=== PATIENT | female | born 1980 | race Caucasian/White ===

== ENCOUNTER → 2019-04-26 10:02 | Outpatient (CLI) | payer OTHER, SELFPAY ==
--- NOTE | 2019-04-26 10:04 | MM_ITS ---
PROCEDURE: MM DIG SCREENING MAMM BI W/CAD CLINICAL INDICATION: Routine Screening Mammogram There is no personal or family history of breast cancer COMPARISON: None, this is baseline screening exam TECHNIQUE: Standard CC and MLO images were obtained. R2 CAD reviewed. FINDINGS: Prominent heterogenic fibroglandular densities are seen in the central portions of both breasts. There are 2 mole markers left breast. There is an asymmetric nodular density mid right breast at the 9 o'clock 10 o'clock position. This probably is is a small cyst but since this is a baseline study recommend the patient return for spot compression views and ultrasound may be necessary as well. There are no suspicious microcalcifications. IMPRESSION: Prominent somewhat heterogenic breast density with asymmetric density right breast BI-RAD Category: 0 Need Additional Imaging Evaluation FOLLOW-UP: IMM Immediate Follow-up Recommended (A letter has been sent to the patient regarding results of the study.) Dictated by: Dr. Georges Kim MD 04/30/2019 15:[address] Georges Kim MD in [place] 04/30/2019 15:39
== END ==
PROVIDERS: PCP Family Medicine; Visit Provider Nurse Practitioner Obstetrics & Gynecology
DX: Z12.31 Encounter for screening mammogram for malignant neoplasm of breast (principal)
CPT/HCPCS: 77067

== ENCOUNTER → 2019-06-07 13:53 | Outpatient (CLI) | payer BC, SELFPAY ==
--- NOTE | 2019-06-07 14:06 | US_ITS ---
PROCEDURE: MM DIG MAMM DX UNILAT RT with 3D tomography CLINICAL INDICATION: DX Mammorgram- Abnormal Mammogram COMPARISON: MM DIG SCREENING MAMM BI W/CAD from 04/26/2019 US BREAST RT COMPLETE from 06/07/2019 TECHNIQUE: Standard CC and MLO images were obtained. 3D tomosynthesis right breast. Right breast ultrasound the FINDINGS: There is average fibroglandular tissue. Previously noted nodular opacity in the upper outer aspect of the right breast is no longer apparent and may have been due to a cyst which has since resolved. Tomographic images show no suspicious abnormality. Right breast ultrasound: No discrete lesions are evident. There is a questionable area of decreased echogenicity at the 10 o'clock region at approximately 6 mm. This however is at best questionable with no mammographic correlate and may only be due to fibroglandular tissue. Three month sonographic follow-up suggested. IMPRESSION: BI-RAD Category: 3 Probably Benign Finding Short Term Follow-up FOLLOW-UP: 3M 3 Month Follow-up (A letter has been sent to the patient regarding results of the study.) Dictated by: Shola Hunter MD 06/10/2019 17:35 Electronically signed by Shola Hunter MD in [place] 06/10/2019 17:35
== END ==
PROVIDERS: PCP Family Medicine; Visit Provider Nurse Practitioner Obstetrics & Gynecology
DX: R92.8 Other abnormal and inconclusive findings on diagnostic imaging of breast (principal)
CPT/HCPCS: 76641; 77061; 77065; G0279

== ENCOUNTER → 2019-10-01 15:34 | Outpatient (CLI) | payer BC, SELFPAY ==
--- NOTE | 2019-10-01 15:35 | US_ITS ---
PROCEDURE: US BREAST RT COMPLETE CLINICAL INDICATION: pt. needs f/u Rt. breast u/s in 3 months. Follow-up abnormal breast ultrasound COMPARISON: US BREAST RT COMPLETE from 06/07/2019 FINDINGS: There is an ill-defined hypoechoic area at 10 o'clock near the nipple with some questionable posterior acoustical shadowing. This has a similar appearance compared to the previous exam. This measures approximately 8 mm and does not appear significantly changed and is wider than it is tall. Different imaging plane does not show persistent shadowing. This may only be due to an area fibrous tissue. Recommend continued follow-up IMPRESSION: Probably benign findings. Recommend six-month sonographic follow-up Dictated by: Shola Hunter MD 10/02/2019 18:21 Electronically signed by Shola Hunter MD in [place] 10/02/2019 18:21
== END ==
PROVIDERS: PCP Family Medicine; Visit Provider Nurse Practitioner Obstetrics & Gynecology
DX: R92.8 Other abnormal and inconclusive findings on diagnostic imaging of breast (principal)
CPT/HCPCS: 76641

== ENCOUNTER → 2020-04-13 15:00 | Outpatient (CLI) | payer BC, SELFPAY ==
--- NOTE | 2020-04-13 15:02 | US_ITS ---
PROCEDURE: US BREAST RT COMPLETE CLINICAL INDICATION: 6 MONTH FOLLOW UP COMPARISON: US US BREAST RT COMPLETE from 10/01/2019 FINDINGS: There is a persistent area of decreased echogenicity with posterior acoustical shadowing in the 10 o'clock region of the right breast. This is not significantly changed however, due to the persistence, would suggest at least fine needle aspiration. No other significant anomalies are evident. IMPRESSION: Persistent area of shadowing in the 10 o'clock region of the right breast. Recommend fine needle aspiration. BI-RADS category 4 suspicious. Recommend biopsy. Dictated by: Shola Hunter MD 04/24/2020 18:17 Shola Hunter MD in [place] 04/24/2020 18:17
== END ==
PROVIDERS: PCP Family Medicine; Visit Provider Nurse Practitioner Obstetrics & Gynecology
DX: R92.8 Other abnormal and inconclusive findings on diagnostic imaging of breast (principal)
CPT/HCPCS: 76641

== ENCOUNTER → 2020-05-28 13:18 | Outpatient (CLI) | payer BC, SELFPAY | PROVIDERS: PCP Family Medicine; Visit Provider Nurse Practitioner Obstetrics & Gynecology | DX: R92.8 Other abnormal and inconclusive findings on diagnostic imaging of breast (principal) | CPT/HCPCS: 19083 ==

== ENCOUNTER → 2020-06-17 12:53 | Outpatient (CLI) | payer BC, SELFPAY ==
--- NOTE | 2020-06-17 12:54 | MM_ITS ---
PROCEDURE: MM DIG SCREENING MAMM BI W/CAD Digital Breast Tomosynthesis Included CLINICAL INDICATION: Screening There is no personal or family history of breast cancer. COMPARISON: MG MM DIG SCREENING MAMM BI W/CAD from 04/26/2019 MG MM DIG MAMM DX UNILAT RT CAD from 06/07/2019 TECHNIQUE: Standard MLO and CC views were obtained along with tomosynthesis images FINDINGS: Moderate scattered fibroglandular densities are seen in both breasts. The findings are bilateral and symmetrical. There are 2 mole markers left breast. There is no suspicious lesion in either breast and no suspicious microcalcifications. There are fatty replaced nodes in both axilla. IMPRESSION: Moderate breast density with no suspicious lesions seen BI-RAD Category: 2 Benign Finding(s) FOLLOW-UP: 1YR 1 Year Follow-up (A letter has been sent to the patient regarding results of the study.) Dictated by: Dr. Georges Kim MD 06/18/2020 15:08 Dr. Georges Kim MD in [place] 06/18/2020 15:08
== END ==
PROVIDERS: PCP Family Medicine; Visit Provider Surgery
DX: Z12.31 Encounter for screening mammogram for malignant neoplasm of breast (principal); N63.10 Unspecified lump in the right breast, unspecified quadrant
CPT/HCPCS: 77063; 77067

== ENCOUNTER → 2020-07-08 15:22 | Outpatient (CLI) | payer BC, SELFPAY ==
[2020-07-08 16:07] LABS: Basophils # 0.1 K/mm3 (0-0.2); Basophils % 0.7 % (0.1-2.0); Eosinophils # 0.1 K/mm3 (0.0-0.4); Eosinophils % 1.4 % (0.1-12.0); Hematocrit 38.5 % (37.0-47.0); Hemoglobin 12.3 g/dL (12.2-16.2); Lymphocytes # 2.6 K/mm3 (0.7-4.5); Lymphocytes % 33.2 % (10-50); Mean Corpuscular Hemoglobin 28.6 pg (27.0-31.2); Mean Corpuscular Volume 89.4 fl (81-99); Mean Platelet Volume 8.7 fl (7.4-10.4); Monocytes # 0.3 K/mm3 (0.1-1.0); Monocytes % 3.9 % (1.7-9.3); Neutrophils # 4.8 K/mm3 (1.8-7.8); Neutrophils % 60.8 % (37.0-80.0); Platelet Count 311 K/mm3 (142-424); Red Cell Distribution Width 13.2 % (11.5-17.5); White Blood Count 7.9 K/mm3 (4.8-10.8)
[2020-07-08 17:07] LABS: Anion Gap 13.4 mEq/L (5-15); Blood Urea Nitrogen 12 mg/dl (7-17); Calcium 9.4 mg/dl (8.4-10.2); Carbon Dioxide 24 mmol/L (22.0-30.0); Chloride 106 mmol/L (98-107); Estimated Glomerular Filt Rate 92 ml/min (>60); GFR (African American) 112 ML/MIN (>60); Glucose 98 mg/dl (74-100); Potassium 4.4 mmoL/L (3.5-5.1); Sodium 139 mmol/L (136-145)
[2020-07-08 18:08] LABS: Coronavirus 19 IgG Antibody Positive (Negative); Coronavirus 19 IgM Antibody Negative (Negative)
== END ==
PROVIDERS: Visit Provider Surgery
DX: Z01.818 Encounter for other preprocedural examination (principal); Z20.822 Contact with and (suspected) exposure to COVID-19; Z86.16 Personal history of COVID-19; N63.10 Unspecified lump in the right breast, unspecified quadrant
CPT/HCPCS: 36415; 80048; 85025; 86328

== ENCOUNTER 2020-07-10 08:09 | Day surgery (SDC) | payer BC, SELFPAY ==
[2020-07-10] VITALS (15 sets, daily range): BP systolic 104–123; BP diastolic 62–76; PULSE 62–82; RESP 14–18; TEMP 36.2–43; O2SAT 93–98
--- NOTE | 2020-07-10 | MM_ITS ---
PROCEDURE: US BREAST NEEDLE LOC RT CLINICAL INDICATION: Breast mass Abnormal ultrasound-guided biopsy., atypical COMPARISON: US US BIOPSY BREAST RT from 05/28/2020 MG MM SURGICAL SPECIMEN RT from 07/10/2020 US US BREAST RT LIMITED from 07/10/2020 MG MM DIG MAMM DX UNILAT RT CAD from 07/10/2020 FINDINGS: Following obtaining informed consent and time-out procedure under aseptic conditions and local anesthesia with 1 percent buffered lidocaine into the nodule of interest within the right breast at the 10 o'clock region. The hookwire was then employed with post placement images showing good hookwire placement. The patient tolerated the procedure well without evidence of immediate complication. Right mammogram was obtained following hookwire placement showed the hookwire in the upper outer aspect of the right breast. Surgical specimen was obtained radiographically and by ultrasound. It is difficult to definitely identify the lesion however the hookwire is in place. Consider six-month mammographic and sonographic follow-up. IMPRESSION: Uneventful ultrasound-guided needle localization of the right breast as described above. Six six-month follow-up suggested per routine protocol. Dictated by: Shola Hunter MD 07/21/2020 09:29 Shola Hunter MD in [place] 07/21/2020 09:29
[2020-07-10 06:47] LABS: HCG Qualitative, Serum Negative (Negative)
--- NOTE | 2020-07-10 10:18 | HMH.ANESCL ---
[facility] Anesthesia Checklist - Patient Identification Patient Identification: Arm Band - Structural Data Admitted From: Home Planned Operative Procedure/s: Right Breast Bx with Needle localization Consent for Planned Operative Procedure(s) Verified: Yes Verified Documents: Surgical Consent, History and Physical - NPO Status Verified Time NPO: 00:00 - Additional verifications Anesthesia Reactions: No Hx Blood Transfusions: No Blood Transfusion Reaction: No - Airway Assessment C-Spine Mobility Assessed: Yes (mp2) TMJ Mobility Assessed: Yes Dentition: Good Dentition - Neurological Assessment Level of Consciousness: Awake, Alert - Anesthesia Plan Anesthesia Risk discussed: Yes Anesthesia Plan: Verified ASA Class: II Anesthesia Type: General [facility] History I have reviewed the patient's past medical history: Yes Medical History: Denies:: Cancer, Diabetes Mellitus Type 1, Diabetes Mellitus Type 2, MRSA, Seizures *Have you ever received a pneumonia vaccine?: No *Have you received a flu vaccine this season?: Yes Other Medical History: Denies: Blood Transfusion Reaction Anesthesia experience/problems:: nac Laterality Cases: Right: Breast Biopsy Other Surgeries: Yes: , Other Amputation: No Fractures: No - *Social History Last grade of school completed: Advanced degree Smoking Status: Never smoker Alcohol Intake: never Substance Use Type: denies use *Occupational Status:: employed *Travel in the last 8 weeks: None Family Hx:: Tuberculosis, Cancer
--- NOTE | 2020-07-10 10:42 | SUR.OPER ---
1026-specimen excised taken to radiology at this time for mammography and ultrasound 1042-Dr. Hunter notified Dr. Pat at this time that specimen excised was okay and no need for further specimen to be excised
--- NOTE | 2020-07-10 11:02 | P.OP_ITS ---
Date of procedure: 07/10/20 Pre-op Diagnosis:: Right breast mass (atypia noted on biopsy) Post-op Diagnosis:: Same Procedure performed:: Needle-localized excisional biopsy of right breast mass Surgeon:: Dariusz Pat MD FLYER BUILDER:: Damir Leblanc Anesthesia: LMA Estimated blood loss (mL): 25 Operative findings:: Specimen marked with dyed suture for deep and superficial margin (short superficial/long deep). Specimen marked with nondyed suture for superior and lateral margins (short superior/long lateral). Radiographic confirmation of excision Operative note:: After informed consent was obtained the patient was taken to the radiology suite where a localization needle was placed. Please see separate report for detail. She was then transferred to the operating room and placed in a supine position. General anesthesia with laryngeal mask airway was achieved. Her right breast was prepped and draped in a sterile fashion. After infiltration local anesthetic a curvilinear incision at the needle exit site was made with scalpel. A combination of scalpel and electrocautery was then utilized to transect through the deeper subcutaneous tissue. Electrocautery and curved Chan scissors were then utilized to transect the breast tissue around the localization needle. The entire needle with surrounding tissue was excised and passed off for pathologic evaluation after being marked for orientation. Electrocautery was utilized to achieve hemostasis throughout the entire wound. A small area of along the medial aspect of the wound of continued ooze was then controlled with interrupted Vicryl suture in a [id number] fashion. Metallic clips were placed along the wound base and margin. The deep subcutaneous tissue was reapproximated with interrupted Vicryl and skin was then closed with 4-0 Monocryl in a running subcuticular fashion. Steri-Strips were applied and the patient was transferred to recovery in stable condition after removal of her laryngeal mask airway. Condition: stable Disposition: PACU Specimens:: Needle localized excisional biopsy of right breast mass Complications:: No immediate
--- NOTE | 2020-07-10 11:13 | P.PN_ITS ---
[facility] Anesthesia Record Part I Intake, IV Amount: 1,000 Estimated blood loss (mL): 10 Urine output (mL): 0 Blood Pressure: 119/70 SaO2: 93 Pulse Rate: 76 Respiratory Rate: 16 Temperature: 97.8 F Patient is:: Drowsy, Stable Stable to PACU at:: 11:10
--- NOTE | 2020-07-10 13:16 | P.PN_ITS ---
[facility] Anesthesia Record Part II Discharge Time: 11:59 Destination: Surgical Day Care (OP Surgery) PACU nurse assessment reviewed?: Yes Patient Condition:: Good Anesthesia Complications:: None Swallowing reflex intact?: Yes Cyanosis?: No Blood Pressure: 104/65 Pulse Rate: 67 Temperature: 97.2 F Mental Status: Alert & Oriented Pain level:: 3 Nausea and/or vomitting:: None Intake, IV Amount: 0
--- NOTE | 2020-07-10 13:19 | PC.NURSE ---
PT BEGAN TO FEEL NAUSEATED WHEN STARTED TO GET DRESSED BUT FEELING PASSED AND WAS READY TO DISCHARGED VIA W/C. STABLE.
== END 2020-07-10 13:20 | disposition home health service (06) ==
LOC: OR 08:11
PROVIDERS: PCP Family Medicine; Visit Provider Surgery
PROC: (CPT 19125; principal; 2020-07-10 09:30)
DX: D24.1 Benign neoplasm of right breast (principal); Z82.5 Family history of asthma and other chronic lower respiratory diseases; Z80.9 Family history of malignant neoplasm, unspecified
CPT/HCPCS: 19125; 19285; 76098; 76642; 77061; 77065; 84703; 96374; G0279; J2405

== ENCOUNTER → 2021-01-14 13:13 | Outpatient (CLI) | payer BC, SELFPAY ==
--- NOTE | 2021-01-14 13:14 | MM_ITS ---
PROCEDURE: MM DIG MAMM DX UNILAT RT CAD Digital Breast Tomosynthesis Included Right breast ultrasound complete with axilla CLINICAL INDICATION: lump COMPARISON: MG MM DIG MAMM DX UNILAT RT CAD from 06/07/2019 MG MM DIG SCREENING MAMM BI W/CAD from 06/17/2020 MG MM SURGICAL SPECIMEN RT from 07/10/2020 MG MM DIG MAMM DX UNILAT RT CAD from 07/10/2020 US US BREAST NEEDLE LOC RT from 07/10/2020 US US BREAST RT LIMITED from 07/10/2020 US US BREAST RT COMPLETE from 01/14/2021 TECHNIQUE: Standard images obtained along with tomosynthesis and spot compression views and right breast ultrasound. FINDINGS: The breasts are heterogeneously dense which may obscure small masses.. Surgical clips are present in the upper outer aspect of the right breast. There is an oval lucent area at this region measuring 2.3 x 1.3 cm. No malignant appearing mass or malignant-appearing microcalcification is evident. Right breast ultrasound: Postsurgical changes are present at the 10 o'clock region with a 2 cm area mixed echogenicity corresponding to the lucent area noted on the mammogram. No suspicious abnormalities are apparent. IMPRESSION: Postsurgical changes. No evidence of malignancy. BI-RAD Category: 2 Benign Finding FOLLOW-UP: 6M 6 Month Follow-up Suggest resume screening mammogram June 2021 (A letter has been sent to the patient regarding results of the study.) Dictated by: Shola Hunter MD 01/27/2021 08:31 Shola Hunter MD in [place] 01/27/2021 08:32
== END ==
PROVIDERS: PCP Family Medicine; Visit Provider Surgery
DX: N63.10 Unspecified lump in the right breast, unspecified quadrant (principal)
CPT/HCPCS: 76641; 77061; 77065; G0279

== ENCOUNTER → 2021-02-03 09:33 | Outpatient (CLI) | payer BC, SELFPAY ==
--- NOTE | 2021-02-03 09:33 | US_ITS ---
PROCEDURE: US FNA LYMPH NODE CLINICAL INDICATION: Enlarged right axillary lymph node COMPARISON: US US BREAST RT COMPLETE from 01/14/2021 TECHNIQUE: Following obtaining informed consent, using aseptic technique and local anesthesia with buffered lidocaine, fine-needle aspiration was performed of the nodule of interest using sonographic guidance. 3 passes were made into the largest node in the right axillary region with a 21 gauge needle. Specimen was given to cytology. The patient tolerated the procedure well without evidence of immediate complications and left the ultrasound suite in stable condition. FINDINGS: CYTOLOGY: Negative for malignant cells consistent with benign reactive lymphadenopathy IMPRESSION: Uneventful ultrasound-guided FNA of a right axillary lymph node showing benign findings Dictated by: Shola Hunter MD 02/10/2021 12:12 Shola Hunter MD in [place] 02/10/2021 12:12
== END ==
PROVIDERS: PCP Family Medicine; Visit Provider Surgery
DX: R59.0 Localized enlarged lymph nodes (principal)
CPT/HCPCS: 10005

== ENCOUNTER → 2021-06-21 12:52 | Outpatient (CLI) | payer BC, SELFPAY ==
--- NOTE | 2021-06-21 12:53 | MM_ITS ---
PROCEDURE INFORMATION: Exam: MG Bilateral Screening 3D Mammography Exam date and time: 06/21/2021 12:53 PM Age: 40 years old Clinical indication: Encounter for screening mammogram for malignant neoplasm of breast TECHNIQUE: Imaging protocol: Bilateral Screening tomosynthesis and 2D mammography including computer-aided detection (CAD) when performed. COMPARISON: 1. MG MM DIG MAMM DX UNILAT RT CAD 01/14/2021 1:10 PM 2. MG MM DIG MAMM DX UNILAT RT CAD 07/10/2020 9:20 AM 3. MG MM DIG SCREENING MAMM BI W/CAD 06/17/2020 1:05 PM FINDINGS: MAMMOGRAPHY: Breast composition: The breasts are heterogeneously dense, which may obscure small masses. Mass: No suspicious masses. Architectural distortion: No suspicious distortion. Relatively stable postoperative changes in the right upper outer quadrant. Skin marker overlies the biopsy scar at site of reported persistent post biopsy hematoma, per patient. Calcifications: No suspicious calcifications. Asymmetric density: None. Skin thickening: None. Axillary adenopathy: None. IMPRESSION: No mammographic evidence of malignancy. Annual screening is recommended unless otherwise clinically indicated. ASSESSMENT: BI-RADS Category 2: Benign
== END ==
PROVIDERS: PCP Family Medicine; Visit Provider Surgery
DX: Z12.31 Encounter for screening mammogram for malignant neoplasm of breast (principal)
CPT/HCPCS: 77063; 77067

== ENCOUNTER → 2021-07-14 10:06 | Outpatient (CLI) | payer BC, SELFPAY ==
--- NOTE | 2021-07-14 10:07 | US_ITS ---
FINAL REPORT CLINICAL HISTORY: palpable area right breast after patient had lumpectomy, imaging nodule FINDINGS: ULTRASOUND-GUIDED right BIOPSY TECHNIQUE: Limited images were obtained to localize region of interest. The right was prepped in a routine sterile fashion and locally anesthetized with 1% lidocaine. Small hypoechoic area was identified sonographically. Initial intent was to FNA the abnormality. Initial thought was that the abnormality may represent fluid. An 18-gauge needle was directed into the abnormality. Vigorous aspiration and multiple attempts at FNA were acquired yielding very minimal tissue. This could be due to extremely viscous fluid or solid tissue. Procedure was then converted to core biopsy. 3 separate core biopsies were performed with an 18-gauge needle. There was a small amount of solid, fragmented material. Given the sonographic appearance, lucent nature on mammography and consistency at time of aspiration and biopsy this raises a question of a small area of evolving fat necrosis. Procedure was well tolerated . CONCLUSION: 1. Technically successful ultrasound guided aspiration and core biopsy of right breast nodule as above. Authenticated by Charli Montoya MD on 07/21/2021 12:03:44 AM [facility]
== END ==
LOC: RAD 10:07
PROVIDERS: PCP Family Medicine; Visit Provider Surgery
DX: N63.11 Unspecified lump in the right breast, upper outer quadrant (principal)
CPT/HCPCS: 19083

== ENCOUNTER → 2022-06-22 10:05 | Outpatient (CLI) | payer BC, SELFPAY ==
--- NOTE | 2022-06-22 10:09 | MM_ITS ---
PROCEDURE INFORMATION: Exam: MG Bilateral Screening 3D Mammography Exam date and time: 06/22/2022 9:59 AM Age: 41 years old Clinical indication: Screening examination . Benign right breast excision TECHNIQUE: Imaging protocol: Bilateral Screening tomosynthesis and 2D mammography including computer-aided detection (CAD) when performed. COMPARISON: 1. MG MM DIG SCREENING MAMM BI W/CAD 06/21/2021 12:56 PM 2. MG MM DIG MAMM DX UNILAT RT CAD 01/14/2021 1:10 PM FINDINGS: MAMMOGRAPHY: Breast composition: There are scattered areas of fibroglandular density. Mass: None. Architectural distortion: Stable post operative architectural distortion in the right upper outer quadrant Calcifications: No suspicious calcifications. Asymmetric density: None. Skin thickening: None. Axillary adenopathy: None. IMPRESSION: No mammographic evidence of malignancy. Annual screening is recommended unless otherwise clinically indicated. ASSESSMENT: BI-RADS Category 2: Benign
== END ==
PROVIDERS: PCP Family Medicine; Visit Provider Family Medicine
DX: Z12.31 Encounter for screening mammogram for malignant neoplasm of breast (principal)
CPT/HCPCS: 77063; 77067

== ENCOUNTER 2023-06-23 14:54 | Outpatient (CLI) | payer BC, SELFPAY ==
--- NOTE | 2023-06-23 14:59 | MM_ITS ---
PROCEDURE INFORMATION: Exam: MG Bilateral Screening 3D Mammography Exam date and time: 06/23/2023 2:51 PM Age: 42 years old Clinical indication: Screening examination. History of benign right breast excision TECHNIQUE: Imaging protocol: Bilateral Screening tomosynthesis and 2D mammography including computer-aided detection (CAD) when performed. COMPARISON: 1. MG MM DIG SCREENING MAMM BI W/CAD 06/22/2022 9:59 AM 2. MG MM DIG SCREENING MAMM BI W/CAD 06/21/2021 12:56 PM FINDINGS: MAMMOGRAPHY: Breast composition: There are scattered areas of fibroglandular density. Mass: None. Architectural distortion: Stable post operative architectural distortion in the right upper outer quadrant due to prior excision Calcifications: No suspicious calcifications. Asymmetric density: None. Skin thickening: None. Axillary adenopathy: None. IMPRESSION: No mammographic evidence of malignancy. Annual screening is recommended unless otherwise clinically indicated. ASSESSMENT: BI-RADS Category 2: Benign
== END 2023-06-23 23:59 ==
LOC: RAD 14:55
PROVIDERS: PCP Family Medicine; Visit Provider Family Medicine
DX: Z12.31 Encounter for screening mammogram for malignant neoplasm of breast (principal)
CPT/HCPCS: 77063; 77067

== ENCOUNTER 2024-09-23 14:08 | Outpatient (CLI) | payer BC, SELFPAY ==
--- NOTE | 2024-09-23 14:00 | MM_ITS ---
PROCEDURE INFORMATION: Exam: MG Bilateral Screening 3D Mammography Exam date and time: 09/23/2024 2:16 PM Age: 44 years old Clinical indication: Screening examination TECHNIQUE: Imaging protocol: Bilateral Screening tomosynthesis and 2D mammography including computer-aided detection (CAD) when performed. COMPARISON: 1. MG MM DIG SCREENING MAMM BI W/CAD 06/23/2023 2:51 PM 2. MG MM DIG SCREENING MAMM BI W/CAD 06/22/2022 9:59 AM FINDINGS: MAMMOGRAPHY: Breast composition: The breasts are heterogeneously dense, which may obscure small masses. Mass: None. Architectural distortion: No new or suspicious distortion Calcifications: No suspicious calcifications. Asymmetric density: None. Skin thickening: None. Axillary adenopathy: None. IMPRESSION: No mammographic evidence of malignancy. Annual screening is recommended unless otherwise clinically indicated. ASSESSMENT: BI-RADS Category 1: Negative.
--- OUTSIDE RECORDS SUMMARY | 2024-09-23 14:09 | XMS_ITS | Data Portability ---
Author Organization [facility] ASTRID Courntey NAVARRE CLOSED Address [address] [address] [place] [address] Assessment No assessment recorded. Plan of Treatment Reminders Order Date Submit Date Provider Last Modified By Organization Details Last Modified Time Details Appointments DERMATOLO GY VISIT 2024 03:45P M PRAVIN MACKENZIE FABRICATION SUPERVISOR Not available Not available Not available Lab surgical pathology study 2023 024 [facility], [address] [place] [address], [phone], 09/15/2023 10:46:38 surgical pathology study 2018 019 [facility], [address] [place] [address], [phone], 06/28/2018 12:07:48 Referral None recorded. Procedures None recorded. Surgeries None recorded. Imaging None recorded. Medication Orders None recorded. Patient TargetsNo targets recorded. Patient Instructions Encounter Date Encounter Id Patient Instructions Last Modified By Organization Details Last Modified Time 06/26/2018 [id number] learning about basal cell skin cancer [email or web address] Not available 06/28/2018 16:39:45 seborrheic keratosis: care instructions [email or web address] Not available 06/28/2018 16:39:45 actinic keratosis: care instructions [email or web address] Not available 06/28/2018 16:39:45 Reason for Referral None Reported. Results Created Date Observation Date Name Description Value Unit Range Abnormal Flag Note LastModifiedBy Organization Detail LastModifiedTime 06/26/19 19 06/26/2018 surgi karthikeyan patho logy study surgical pathology procedure SEE BELOW Depar tment of Patho logy Surgi karthikeyan Patho logy Repor t NAME: ROHAN LEON SE [facility] PATH. :[id number] Copy to: Diagn osis: Left upper anter ior arm: Basal cell carci noma, nodul ar type. SOURC E OF SPECI MEN: SKIN BIOPS Y, LEFT UPPER ANTER IOR ARM CLINI KARTHIKEYAN INFOR MATIO N: D48.5 R/O - BCC Gross Descr iptio n: Recei brandy in forma gisele label ed with the patie nt's name and desig nated as left upper anter ior arm is a shave biops y of skin (0.5 x 0.4 x 0.1 cm). The epide rmal surfa ce is massey-w leanne and monserrat h. The shantel n is inked blue. The speci men is entir whit submi tted in one casse tte. UTE 06/27 11:19 AM Micro scopi c Descr iptio n: Secti ons demon strat e a nodul ar patte rn of basal cell carci noma with tumor abutt ing the inked deep shantel n of the shave biops y. TOMMY RICO M.D. Olivia d Out Date: 06/28 12:06 Page 1 of 1 Not Available [facility] [address] [place] [address], [place], [address], 06/28/2018 12:07:48 09/13/19 24 09/13/2023 SURGI KARTHIKEYAN surgical SEE BELOW abnormal Depar tment of Patho logy Surgi karthikeyan Patho logy Repor t NAME: ROHAN LEON SE [facility] PATH. :[id number] Copy to: Diagn osis: Left upper later al thigh : Basal cell carci noma, super ficia l type; incom plete ly excis ed. SOURC E OF SPECI MEN: SKIN BIOPS Y, LEFT UPPER LATER AL THIGH CLINI KARTHIKEYAN INFOR MATIO N: D48.5 R/O BCC Gross Descr iptio n: Recei brandy in forma gisele label ed with the patie nt's name and desig nated left upper later al thigh is a shave biops y of skin (0.5 x 0.4 x 0.1 cm). The epide rmal surfa ce is white and rough ened. The shantel n is inked blue. The speci men is bisec sima and entir whit submi tted in one casse tte label ed A1. MT 09/13 12:19 PM Micro scopi c Descr iptio n: A micro scopi c exami natio n has been perfo rmed and the resul t(s) are as noted above . TOMMY RICO M.D. Olivia henao Out Date: 09/14 10:46 Page 1 of 1 Not Available [facility] [address] [place], [address], 09/15/2023 10:46:38 Result Notes None recorded. Procedures Surgical History Date Name Laterality Status Provider Name and Address Organization Details Recorded Time 03/20/20 24 Destruction Premalignant Lesion(s) completed PRAVIN MACKENZIE, FABRICATION SUPERVISOR [address] [place], [address], [facility] 03/20/2024 16:23:47 09/13/19 24 Destruction [place] Lesion; trunk, arm, leg completed PRAVIN MACKENZIE, FABRICATION SUPERVISOR [address] [place], [address], [facility] 09/13/2023 16:32:13 09/13/19 24 Destruction Premalignant Lesion(s) completed Kesha Sue [facility] 09/13/2023 16:13:48 06/26/19 19 Destruction MN Lesion; trunk, arm, leg completed Nehal Amaya [facility] 06/26/2018 15:39:48 06/26/19 19 Destruction Premalignant Lesion(s) completed Nehal Grahamutcher [facility] 06/26/2018 15:40:36 Imaging Results None recorded. Procedure Notes None recorded. Medical Equipment None Reported. Allergies Allergen ID Allergen Name Allergen Category Reaction Reaction Severity Criticality Documentation Date Start Date Code Code System Note Provider Name and Address Organization Details Recorded Time 511429 Product containin g penicilli n (product) medicatio n Not available Not available Not available 06/26/2018 19961 8001 SNOMED Nehal Amaya [facility] 9 15:24:55 Medications Name Sig Start Date Stop Date Status Note LastModified by Organization Details LastModified Time phentermine 06/26 completed Medication Descriptio n: phentermin e; refills:0 Not Available Not Available Not Available Vitals None Recorded Social History Question Answer Notes LastModified by Organizat ion Details LastModified Time Tobacco Smoking Status Never Smoker Nehal Amaya [facility] 06/26/2018 15:25:27 How Much Tobacco Do You Chew? None [email or web address] Information not available 06/26/2018 What Was The Date Of Your Most Recent Tobacco Screening? 06/26/2018 [email or web address] Information n ot available 07/02/2019 Sex: Unknown Functional Status None recorded. Mental Status None recorded. Family History Nothing Reported Notes:NO FAMILY HX OF MM Medical History No medical history recorded. Gynecological HistoryNo gynecological history recorded. Obstetrics History GPAL:G 0 P 0 0 0 0 Past Encounters Encounter ID Performer Location Encounter Start Date Encounter Closed Date Diagnosis/Indication Diagnosis SNOMED-CT Code Diagnosis ICD10 Code Diagnosis Note [id number] PRAVIN MACKENZIE APRN [facility] [address] [place] [address] 06/26/2018 15:11:23 06/29/2018 08:04:00 Multiple benign melanocytic nevi 398661760 D22.9 BENIGN APPEARANCE , PT REASSURED; ADVISED TO RTC WITH ANY CHANGES F/U 1 YR ANNUAL FSE OR SOONER IF ANY NEW OR CHANGING LESIONS Solar lentiginosis 13117 2006 L81.4 BENIGN APPEARANCE , PT REASSURED Hemangioma 282988587 D18 .00 BENIGN APPEARANCE , PT REASSURED History of malignant basal cell neoplasm of skin 762896812 Z85.828 NO EVIDENCE OF RECURRENCE Neoplasm o f uncertain behavior of skin 78873872 D48.5 R/O BCC LOCATION: LEFT UPPER ANTERIOR ARM SHAVE BIOPSY ED&C X3 GEL FOAM/PRESS URE BANDAGE SEE PROCEDURE NOTE CONSENT SIGNED WOUND CARE INSTRUCTIO NS PROVIDED PHOTO TAKEN FOLLOW UP PER PATH/PRN Senile hyperkeratosis 39 7653458 L82.1 BENIGN APPEARANCE , PT REASSURED Actinic keratosis 801197 007 L57.0 CRYO X1 RISKS OF CRYO SURGERY DISCUSSED; POST OP CARE INSTRUCTIO NS PROVIDED. VERBAL CONSENT TO TREAT GIVEN BY PATIENT. RECHECK IF PERSISTING AFTER TREATMENT. Basal cell carcinoma of skin 068973780 C44.91 LESION TREATED ABOVE ON ARM BIOPSY PROVEN [id number] PRAVIN MACKENZIE APRN [facility] [address] [place] [address] 09/13/2023 15:55:07 09/14/2023 08:18:33 Multiple benign melanocytic nevi 313920241 D22.9 BENIGN APPEARANCE , PT REASSURED; ADVISED TO RTC WITH ANY CHANGES F/U 1 YR ANNUAL FSE OR SOONER IF ANY NEW OR CHANGING LESIONS Solar lentiginosis 16434 2006 L81.4 BENIGN APPEARANCE ,RECOMMEND SUN PROTECTIVE CLOTHING AND EQUATE SPORT SUNSCREEN AND CERAVE AM SUNSCREEN LOTION OTC DAILY. Hemangioma 194695290 D18 .00 BENIGN APPEARANCE , PT REASSURED History of malignant basal cell neoplasm of skin 964376468 Z85.828 NO EVIDENCE OF RECURRENCE RECOMMEND 6 MONTH FSE Senile hyperkeratosis 39 3433425 L82.1 BENIGN APPEARANCE , PT REASSURED Actinic keratosis 572259 007 L57.0 CRYO X3 RISKS OF CRYO SURGERY DISCUSSED; POST OP CARE INSTRUCTIO NS PROVIDED. VERBAL CONSENT TO TREAT GIVEN BY PATIENT. RECHECK IF PERSISTING AFTER TREATMENT. Neoplasm o f uncertain behavior of skin 94986368 D48.5 R/O BCC LOCATION: L UPPER LATERAL THIGH SHAVE BIOPSY ED&C X3 GEL FOAM/PRESS URE BANDAGE SEE PROCEDURE NOTE CONSENT SIGNED WOUND CARE INSTRUCTIO NS PROVIDED PHOTO TAKEN FOLLOW UP PER PATH Basal cell carcinoma of lower extremity 726068118 C44.719 BIOPSY PROVEN LESION TREATED ABOVE [id number] EMILIA [facility]BA[facility]AL [facility] [address] [place] [address] 03/20/2024 16:07:42 03/20/2024 16:25:31 Multiple benign melanocytic nevi 330731618 D22.9 BENIGN APPEARANCE , PT REASSURED; ADVISED TO RTC WITH ANY CHANGES F/U 1 YR ANNUAL FSE OR SOONER IF ANY NEW OR CHANGING LESIONS Solar lentiginosis 87476 2006 L81.4 BENIGN APPEARANCE ,RECOMMEND SUN PROTECTIVE CLOTHING AND EQUATE SPORT SUNSCREEN AND CERAVE AM SUNSCREEN LOTION OTC DAILY. Hemangioma 935186616 D18 .00 BENIGN APPEARANCE , PT REASSURED History of malignant basal cell neoplasm of skin 043350251 Z85.828 NO EVIDENCE OF RECURRENCE RECOMMEND 6 MONTH FSE Senile hyperkeratosis 39 4723695 L82.1 BENIGN APPEARANCE , PT REASSURED Actinic keratosis 799754 007 L57.0 CRYO X2 RISKS OF CRYO SURGERY DISCUSSED; POST OP CARE INSTRUCTIO NS PROVIDED. VERBAL CONSENT TO TREAT GIVEN BY PATIENT. RECHECK IF PERSISTING AFTER TREATMENT. Health Concerns Section Related Observation LastModified by Organization Detai ls LastModified Time None Recorded Concern Status LastModified by Organization Details LastModified Time None Recorded Advance Directives Directive None Recorded Payers Insurance Date Sequence Insurance Name Policy Number Policy Branch Covered Member ID Branch Member ID Guarantor Name 09/16/2024 1 [place] [id number] 1 Ana Arias [id number] Ana Arias Notes Date Note Type Note Provider Name and Address Organization Details Recorded Time 06/26/2018 text/html NEW PT- LAST SEE N 12/2014 1) DESIRES FSE- HX OF BCC 2) PT C/O LESION ON LEFT ARM X 6 MONTHS. (-)ITCH/BLEED/PAIN . NO TX NO OTHER CONCERNS Denies any other new, changing, or bleeding lesions, or other rashes. Patient feels well today and in a good mood. No family history of melanoma. PRAVIN MACKENZIE, EMILIA [address] [place], [address], [facility] 06/28/2018 16:42:30 09/13/2023 text/html NEW PT- LAST SEE N 2018 1) DESIRES FSE- HX OF BCC 2) PT C/O LESION ON L THIGH (-)ITCH/BLEED/PAIN . NO TX Denies any other new, changing, or bleeding lesions, or other rashes. Patient feels well today and in a good mood. No family history of melanoma. PRAVIN MACKENZIE, EMILIA [address] [place], [address], [facility] 09/18/2023 10:53:59 03/20/2024 text/html ESTABLISHED PT - HX BCC 1) DESIRES FSE NO OTHER CONCERNS Denies any other new, changing, or bleeding lesions, or other rashes. Patient feels well today and in a good mood. No family history of melanoma. PRAVIN MACKENZIE, FABRICATION SUPERVISOR [address], [place], [address], [facility] 03/20/2024 16:25:07 OBGyn Episode No OBEpisode recorded.
== END 2024-09-23 23:59 | disposition home or self-care (01) ==
LOC: RAD 14:08
PROVIDERS: PCP Family Medicine; Visit Provider Obstetrics & Gynecology
DX: Z12.31 Encounter for screening mammogram for malignant neoplasm of breast (principal)
CPT/HCPCS: 77063; 77067

== ENCOUNTER 2024-11-20 09:26 | Day surgery (SDC) | payer BC, SELFPAY ==
[2024-11-19 13:01] VITALS: BMI 24.0
--- NOTE | 2024-11-20 09:02 | EXP.HP ---
History of Present Illness *Admission Date: 11/20/24 *Reason for visit:: Screening colonoscopy *History of present illness: Mrs. Arias is a 44-year-old female who is here for initial screening colonoscopy. The examination is deemed medically necessary for screening colonoscopy. The patient has been seen, interviewed and examined prior to the procedure by both myself and the anesthesia provider. [facility] Disclaimer: The information contained in this section may have been updated after the patient was seen, as this information can be updated by other users. Medical History (Updated 11/20/24 @ 11:35 by Tim Pete II, MD) Polycystic ovarian syndrome Mass of right breast on mammogram Endometriosis determined by laparoscopy delivery delivered Family History Other Alcoholism Cancer FHx: mental illness Hypertension Tuberculosis Social History Smoking Status: Never smoker alcohol intake: never substance use type: denies use current occupational status: employed Travel in the last 8 weeks?: None Have you lived/traveled outside US in past 30 days?: No Contact w/someone who lives/traveled outside US past 30 days?: No Exposure to someone with infectious disease in past 14 days?: No Do you have a fever (greater than 100.4 F or 38 C)?: No Have you tested positive for COVID-19?: No Exposed to someone with COVID-19 in past 14 days?: No Do you have a sore throat?: No Do you have a cough?: No Do you have any weakness?: No Do you have any diarrhea?: No Are you experiencing any unusual bleeding?: No Do you have any muscle aches/pain?: No Do you have any abdominal pain?: No Are you experiencing loss of taste or smell?: No Other Medical History Have you received the Flu Vaccine for this season: Yes Have you received the Pneumonia Vaccine: No Review of Systems Review of Systems Review of systems (narrative): Negative *Cardiovascular Comments: Negative *Gastrointestinal Comments: Negative *Genitourinary Comments: Negative *Musculoskeletal Comments: Negative *Neurologic Comments: Negative Meds Home Medications and Allergies Home Medications ?Medication ?Instructions ?Recorded ?Confirmed ?Type norgestimate 0.25 mg-ethinyl 1 tab .Route DAILY #28 tabs 09/10/24 11/20/24 Rx estradiol 0.035 mg tablet (Sprintec (28)) sod picosulf 10 mg-magnes 3.5 175 ml PO DAILY Bowel Prep 2 doses 11/04/24 Rx gram-citric 12 gram/175 mL oral #350 mL solution (Clenpiq) diphenhydramine HCl 25 mg tablet 25 mg PO DAILY 11/19/24 11/20/24 History semaglutide (weight loss) 2.4 2.5 mg SQ WEEKLY 11/19/24 11/20/24 History mg/0.75 mL subcutaneous pen injector (Wegovy) New Prescriptions to Start Prescriptions: Allergies Allergy/AdvReac Type Severity Reaction Status Date / Time Penicillins Allergy Unknown Rash Verified 11/20/24 10:29 Exam Data for Last 24 hours I & O for Last 24 hours: Intake & Output 11/17/24 11/18/24 11/19/24 11/20/24 23:59 23:59 23:59 23:59 Weight 140 lb *Routine HEENT Exam Head: Present normocephalic Eye: Present EOMI and PERRL ENT: Present mucous membranes moist *Routine Neck Exam Neck: Present supple *Routine Respiratory Exam Respiratory: Present CTA bilaterally *Routine Cardiovascular Exam Cardiovascular: Present RRR *Routine Abdominal Exam Abdominal: Present soft and normoactive bowel sounds; Absent tenderness *Routine Rectal Exam Rectal:: deferred *Routine Genitalia Exam Genitalia:: deferred *Routine Extremities Exam Extremities: Absent cyanosis, clubbing or edema *Routine Skin Exam Skin: Present warm; Absent rash *Routine Neurological Exam Neurological: Present alert and oriented X3 Assessment and Plan *Assessment and plan (1) Screening for colon cancer: Status: Acute Category: Medical Code(s): Z12.11 - Encounter for screening for malignant neoplasm of colon Plan A/P: 1. Screening for colon cancer is the preprocedural diagnosis. The patient will be anesthetized/sedated using MAC sedation. The patient has been seen and examined. Cardiac and lung assessment prior to the examination is stable. Proceed with planned screening colonoscopy.
[2024-11-20 10:34] VITALS: BP 109/74; PULSE 73; RESP 18; TEMP 36.3; O2SAT 97
[2024-11-20 10:36] LABS: Urine Pregnancy, HCG Qual. Negative (Negative)
[2024-11-20] MEDS: LACTATED RINGERS 1000ML 1,000 ML 50 ML IV (10:43)
--- NOTE | 2024-11-20 10:48 | P.PNANES_ITS ---
[facility] Disclaimer: The information contained in this section may have been updated after the patient was seen, as this information can be updated by other users. Medical History Polycystic ovarian syndrome Mass of right breast on mammogram Endometriosis determined by laparoscopy delivery delivered Family History Other Alcoholism Cancer FHx: mental illness Hypertension Tuberculosis Social History Smoking Status: Never smoker alcohol intake: never substance use type: denies use current occupational status: employed Travel in the last 8 weeks?: None Have you lived/traveled outside US in past 30 days?: No Contact w/someone who lives/traveled outside US past 30 days?: No Exposure to someone with infectious disease in past 14 days?: No Do you have a fever (greater than 100.4 F or 38 C)?: No Have you tested positive for COVID-19?: No Exposed to someone with COVID-19 in past 14 days?: No Do you have a sore throat?: No Do you have a cough?: No Do you have any weakness?: No Do you have any diarrhea?: No Are you experiencing any unusual bleeding?: No Do you have any muscle aches/pain?: No Do you have any abdominal pain?: No Are you experiencing loss of taste or smell?: No [facility] Anesthesia Checklist Patient Identification Patient Identification: Arm Band Structural Data Admitted From: Home Planned Operative Procedure/s: Colonoscopy Consent for Planned Operative Procedure(s) Verified: Yes Verified Documents: Surgical Consent and History and Physical NPO Status Verified Time NPO: 00:00 Additional verifications Anesthesia Reactions: No Hx Blood Transfusions: No Blood Transfusion Reaction: No Airway Assessment Mallampati Score:: Class II C-Spine Mobility Assessed: Yes TMJ Mobility Assessed: Yes Dentition: Good Dentition Neurological Assessment Level of Consciousness: Awake, Alert and Appropriate Anesthesia Plan Anesthesia Risk discussed: Yes Anesthesia Plan: Verified ASA Class: II Anesthesia Type: MAC
--- NOTE | 2024-11-20 11:46 | P.PCN_ITS ---
[facility] Procedure Note Date: 11/20/24 Time: 12:01 Procedure Note:: Colonoscopy Procedure Report: Colonoscopy Endoscopist: Tim Pete II, MD Referring physician: Mandi Perry MD, [address] [place] [address] Date of Procedure: November 20, 2024 Equipment: Olympus 190 variable stiffness pediatric colonoscope Sedation: MAC sedation Indication: Mrs. Arias is a 44-year-old female who is here for initial screening colonoscopy. She reports no abdominal pain, weight loss, change in h er bowel habits or rectal bleeding. She does state that her maternal grandmother and paternal great grandmother had colon cancer. 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 Procedure: Prior to the procedure, a history and physical exam was performed, and patient's medications and allergies were reviewed. The risks, benefits and alternatives of the sedation and procedure were discussed with the patient. All questions were answered and informed consent was obtained. The patient was brought to the procedure room. Patient identification and proposed procedure were verified by the physician and the nurse. The patient was placed in a left lateral decubitus position and the scope was passed under direct vision. Throughout the procedure, the patient's blood pressure, pulse, and oxygen saturations were monitored continuously. The colonoscopy was accomplished without difficulty. The patient tolerated the procedure well. Findings: On digital rectal examination there was normal rectal tone. There were no external hemorrhoids. The colonoscope was introduced through the anal canal to the rectum and advanced to the cecum. The ileocecal valve and appendiceal orifice were identified. The scope was advanced a short distance into the ileum which appeared grossly normal. The scope was then withdrawn into the colon. The cecum, ascending and transverse colon and mucosa were grossly normal. There were mildly scattered diverticuli throughout the descending and sigmoid colon (LEFT colon). The rectum itself was normal. Upon retroflexion within the rectum there were grade 1-2 internal hemorrhoids. The preparation was excellent throughout with [place] Preparation Score of 9. The cecal time was 12 minutes. Impression: 1. Mild left-sided diverticulosis 2. Grade 1-2 internal hemorrhoids Plan: The patient will not require screening/surveillance colonoscopy again for 10 years by ACS guidelines. I would encourage psyllium bulking fiber supplementation on a maintenance basis.
[2024-11-20 12:04] VITALS: BP 113/66; PULSE 72; RESP 18; TEMP 36.4; O2SAT 98
[2024-11-20 12:14] VITALS: BP 111/58; PULSE 62; RESP 18; O2SAT 99
[2024-11-20 12:24] VITALS: BP 116/67; PULSE 64; RESP 18; O2SAT 100
[2024-11-20 12:34] VITALS: BP 117/71; PULSE 66; RESP 18; O2SAT 100
[2024-11-20 12:53] VITALS: BP 107/73; PULSE 68; RESP 18; TEMP 36.4; O2SAT 100
== END 2024-11-20 12:53 | disposition home or self-care (01) ==
PROVIDERS: PCP Family Medicine; Visit Provider Internal Medicine Gastroenterology
PROC: 0DJD8ZZ Inspection of Lower Intestinal Tract, Via Natural or Artificial Opening Endoscopic (ICD-10-PCS; CPT 45378; principal; 2024-11-20 11:00)
DX: Z12.11 Encounter for screening for malignant neoplasm of colon (principal); K57.30 Diverticulosis of large intestine without perforation or abscess without bleeding; K64.1 Second degree hemorrhoids; K58.2 Mixed irritable bowel syndrome; E28.2 Polycystic ovarian syndrome; Z80.0 Family history of malignant neoplasm of digestive organs; Z79.85 Long-term (current) use of injectable non-insulin antidiabetic drugs; Z79.899 Other long term (current) drug therapy; Z79.890 Hormone replacement therapy; Z88.0 Allergy status to penicillin
CPT/HCPCS: 45378; 81025; J2003; J2704; J7120